=== PATIENT | female | born 1960 | race Caucasian/White ===

== ENCOUNTER 2017-07-09 16:33 | Emergency (ER) | payer OTHER ==
[2017-07-09] MEDS ORDERED: IOHEXOL 350 MG/ML 10 ML VIAL (for RAD DIAG) IVCONTRAST ONE (16:34)
[2017-07-09] MEDS ORDERED: DIPHTH/TETANUS/ACEL PERTUSSIS (BOOSTER) 0.5 ML VIAL/PFS IM ONE (16:43)
[2017-07-09] MEDS ORDERED: ceFAZolin 2 GM PREMIX 50 ML ONE (16:44)
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
[2017-07-09 16:58] LABS: AUTOMATED NEUTROPHIL # 15.2 TH/MM3 (1.8-7.7); BASOPHIL # 0.2 TH/MM3 (0-0.2); BASOPHIL % 0.8 % (0.0-2.0); EOSINOPHIL # 0.1 TH/MM3 (0-0.4); EOSINOPHIL % 0.5 % (0.0-4.0); HEMATOCRIT 38.2 % (35.0-46.0); HEMOGLOBIN 13.6 GM/DL (11.6-15.3); LYMPH % 14.7 % (9.0-44.0); LYMPHOCYTE # 2.9 TH/MM3 (1.0-4.8); MEAN CELL VOLUME 86.1 FL (80.0-100.0); MEAN CORPUSCULAR HEMOGLOBIN 30.5 PG (27.0-34.0); MEAN CORPUSCULAR HGB CONC 35.5 % (32.0-36.0); MEAN PLATELET VOLUME 10.1 FL (7.0-11.0); MONO % 5.9 % (0.0-8.0); MONOCYTE # 1.2 TH/MM3 (0-0.9); NEUT % 78.1 % (16.0-70.0); PLATELET COUNT 260 TH/MM3 (150-450); RED BLOOD COUNT 4.44 MIL/MM3 (4.00-5.30); RED CELL DISTRIBUTION WIDTH 13.8 % (11.6-17.2); WHITE BLOOD COUNT 19.5 TH/MM3 (4.0-11.0)
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
[2017-07-09 17:14] LABS: PROTHROMBIN TIME - PATIENT 10.6 SEC (9.8-11.6)
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
[2017-07-09 18:00] VITALS: BP 130/84; PULSE 64; RESP 18; O2SAT 100
[2017-07-09] MEDS ORDERED: MORPHINE SULFATE 2 MG/ML INJ IV PUSH ONE (18:00)
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
[2017-07-09] MEDS ORDERED: HYDR-3288 PO (19:06)
[2017-07-09] MEDS ORDERED: LISI10TA3 PO (19:09)
[2017-07-09] MEDS ORDERED: METO25TA3 PO (19:09)
[2017-07-09] MEDS ORDERED: SPIR25TA PO (19:09)
[2017-07-09] MEDS ORDERED: METH2.5T PO (19:09)
[2017-07-09] MEDS ORDERED: LORA1TAB12 PO (19:09)
[2017-07-09] MEDS ORDERED: TRAM50TA PO (19:09)
== END 2017-07-09 20:00 | disposition home or self-care (01) ==
LOC: NEPI 16:33 → EDBD 16:33 → NEPE 20:00
DX: S02.82XA Fracture of other specified skull and facial bones, left side, initial encounter for closed fracture (principal); S02.2XXA Fracture of nasal bones, initial encounter for closed fracture; V28.4XXA Motorcycle driver injured in noncollision transport accident in traffic accident, initial encounter; Z23 Encounter for immunization
CPT/HCPCS: 70450; 70486; 71045; 71260; 72125; 72129; 72170; 73060; 74177; 80048; 85025; 85610; 85730; 86850; 86900; 86901; 90471; 90715; 96374; 96375; 99285; 99291; J0690; J2270; Q9967; G0390